=== PATIENT | male | born 1940 | race Caucasian/White ===

== ENCOUNTER 2021-02-18 08:47 | Inpatient (IN) ==
[2021-02-18] MEDS ORDERED: FUROSEMIDE 40 MG/4 ML VIAL IV STA (09:38)
[2021-02-18 09:43] LABS: Basophils # 0.1 10*3/uL (0.0-0.2); Basophils % 0.5 % (0.0-0.8); Eosinophils # 0.3 10*3/uL (0.0-0.87); Eosinophils % 2.4 % (0.00-10.9); Hematocrit 37.2 VOL% (42.0-52.0); Hemoglobin 11.9 GM/DL (14.0-18.0); Immature Granulocytes % 0.7 %; Immature Granulocytes Absolute 0.09 #; Lymphocytes # 1.4 10*3/uL (1.4-4.0); Lymphocytes % 11.4 % (21.2-54.2); Mean Corpuscular Volume 91.9 FL (87-102); Mean Platelet Volume 10.8 FL (9.6-12.0); Monocytes % 4.4 % (1.7-12.7); Neutrophils % 80.6 % (38.7-73.9); Platelet Count 338 T/CUMM (130-400); Red Blood Count 4.05 MC/CUMM (3.8-5.5); Red Cell Distribution Width 13.8 % (9.3-17.3); White Blood Count 12.6 T/CUMM (4-12)
[2021-02-18 09:56] LABS: Albumin 3.5 G/DL (3.4-5.0); Bilirubin,Total 0.7 MG/DL (0.2-1.0); Calcium 9.2 MG/DL (8.5-10.1); Potassium 3.9 MMOL/L (3.5-5.1); Total Protein 6.7 G/DL (6.4-8.2)
[2021-02-18 10:10] LABS: INR 1.2; PT Patient Result 12.8 SECS (9.8-11.9); Partial Thromboplastin Time 29.9 SECS (23.9-33.8)
[2021-02-18] MEDS ORDERED: AZITHROMYCIN INJ 500 MG in SODIUM CHLORIDE 0.9% 250 ML IV STA (11:48)
[2021-02-18] MEDS ORDERED: cefTRIAXone 1,000 MG VIAL IM STA (11:48)
[2021-02-18] MEDS ORDERED: cefTRIAXone 1,000 MG in SODIUM CHLORIDE 0.9% 100 ML IV SCH (12:00)
[2021-02-18] MEDS: cefTRIAXone 1,000 MG in SODIUM CHLORIDE 0.9% 100 ML IV SCH (12:13)
[2021-02-18] MEDS ORDERED: DILTIAZEM 50 MG/10 ML VIAL IV STA (12:15)
[2021-02-18] MEDS ORDERED: METOPROLOL TARTRATE 25 MG TABLET PO STA (12:17)
[2021-02-18] MEDS ORDERED: ONDANSETRON 4 MG/2 ML VIAL IV PRN (12:19)
[2021-02-18] MEDS ORDERED: hydrALAZINE 20 MG/1 ML VIAL IV PRN (12:19)
[2021-02-18] MEDS ORDERED: GLUCAGON 1 MG VIAL IM PRN (12:19)
[2021-02-18] MEDS ORDERED: DOCUSATE SODIUM 100 MG CAPSULE PO PRN (12:19)
[2021-02-18] MEDS ORDERED: DEXTROSE 50% 25 GM/50 ML VIAL IV PRN (12:19)
[2021-02-18] MEDS: DILTIAZEM INJ 100 MG in SODIUM CHLORIDE 0.9% 100 ML IV SCH (12:43)
[2021-02-18 13:20] LABS: Thyroid Stimulating Hormone 2.31 uIU/ml (0.358-3.74)
[2021-02-18] MEDS: ENOXAPARIN 40 MG/0.4 ML SYRINGE SUBCUT SCH (13:32)
[2021-02-18] MEDS ORDERED: INSULIN LISPRO 100 UNIT/ML SUBCUT PRN (15:19)
[2021-02-18] MEDS: METOPROLOL TARTRATE 25 MG TABLET PO SCH (21:07)
[2021-02-18] MEDS: TAMSULOSIN 0.4 MG CAPSULE PO SCH (21:07)
[2021-02-19 05:36] LABS: Basophils # 0.1 10*3/uL (0.0-0.2); Basophils % 0.3 % (0.0-0.8); Eosinophils # 0.2 10*3/uL (0.0-0.87); Eosinophils % 1.4 % (0.00-10.9); Hematocrit 35.6 VOL% (42.0-52.0); Hemoglobin 11.6 GM/DL (14.0-18.0); Immature Granulocytes % 0.8 %; Immature Granulocytes Absolute 0.12 #; Lymphocytes # 1.4 10*3/uL (1.4-4.0); Lymphocytes % 9.1 % (21.2-54.2); Mean Corpuscular HGB Conc 32.6 GM/DL (32-36); Mean Corpuscular Volume 90.1 FL (87-102); Mean Platelet Volume 10.9 FL (9.6-12.0); Monocytes % 5.4 % (1.7-12.7); Platelet Count 338 T/CUMM (130-400); Red Blood Count 3.95 MC/CUMM (3.8-5.5); Red Cell Distribution Width 13.9 % (9.3-17.3); White Blood Count 15.3 T/CUMM (4-12)
[2021-02-19 06:31] LABS: Calcium 8.9 MG/DL (8.5-10.1); Osmolality,Calculated 269.2 MOS/KG (273-304); Potassium 3.5 MMOL/L (3.5-5.1)
[2021-02-19] MEDS: METOPROLOL TARTRATE 25 MG TABLET PO SCH (08:52)
[2021-02-19] MEDS: FUROSEMIDE 40 MG TABLET PO SCH (08:52)
[2021-02-19] MEDS: PANTOPRAZOLE 40 MG TABLET PO SCH (08:53)
[2021-02-19] MEDS: cefTRIAXone 1,000 MG in SODIUM CHLORIDE 0.9% 100 ML IV SCH (12:16)
[2021-02-19] MEDS: ENOXAPARIN 40 MG/0.4 ML SYRINGE SUBCUT SCH (12:17)
[2021-02-19] MEDS: AZITHROMYCIN INJ 500 MG in SODIUM CHLORIDE 0.9% 250 ML IV SCH (13:00)
[2021-02-19] MEDS: DILTIAZEM INJ 100 MG in SODIUM CHLORIDE 0.9% 100 ML IV SCH (14:26)
[2021-02-19] MEDS ORDERED: FUROSEMIDE 40 MG/4 ML VIAL IV ONE (14:33)
[2021-02-19] MEDS: DOCUSATE SODIUM 100 MG CAPSULE PO SCH (20:21)
[2021-02-19] MEDS: ACETAMINOPHEN 500 MG TABLET PO SCH (20:21)
[2021-02-19] MEDS: METOPROLOL TARTRATE 50 MG TABLET PO SCH (20:22)
[2021-02-19] MEDS: TAMSULOSIN 0.4 MG CAPSULE PO SCH (20:22)
[2021-02-19] MEDS ORDERED: ENOXAPARIN 80 MG/0.8 ML SYRINGE SUBCUT SCH (21:00)
[2021-02-19] MEDS ORDERED: SIMVASTATIN 20 MG TABLET PO SCH (21:00)
[2021-02-20 05:14] LABS: Basophils % 0.5 % (0.0-0.8); Eosinophils # 0.3 10*3/uL (0.0-0.87); Eosinophils % 3.7 % (0.00-10.9); Hematocrit 36.8 VOL% (42.0-52.0); Hemoglobin 11.6 GM/DL (14.0-18.0); Immature Granulocytes % 0.6 %; Immature Granulocytes Absolute 0.05 #; Lymphocytes # 1.6 10*3/uL (1.4-4.0); Lymphocytes % 18.9 % (21.2-54.2); Mean Corpuscular HGB Conc 31.5 GM/DL (32-36); Mean Corpuscular Volume 91.3 FL (87-102); Mean Platelet Volume 10.4 FL (9.6-12.0); Monocytes % 8.3 % (1.7-12.7); Platelet Count 298 T/CUMM (130-400); Red Blood Count 4.03 MC/CUMM (3.8-5.5); Red Cell Distribution Width 13.8 % (9.3-17.3); White Blood Count 8.5 T/CUMM (4-12)
[2021-02-20 05:30] LABS: Calcium 8.9 MG/DL (8.5-10.1); Osmolality,Calculated 281.3 MOS/KG (273-304); Potassium 3.3 MMOL/L (3.5-5.1)
[2021-02-20 05:35] LABS: Risk Ratio 4.77; VLDL CHOLESTEROL 26.8 MG/DL
[2021-02-20] MEDS: ACETAMINOPHEN 500 MG TABLET PO SCH (08:43)
[2021-02-20] MEDS: FUROSEMIDE 40 MG TABLET PO SCH (08:43)
[2021-02-20] MEDS: DOCUSATE SODIUM 100 MG CAPSULE PO SCH (08:43)
[2021-02-20] MEDS: METOPROLOL TARTRATE 50 MG TABLET PO SCH (08:43)
[2021-02-20] MEDS: PANTOPRAZOLE 40 MG TABLET PO SCH (08:43)
[2021-02-20] MEDS ORDERED: MULTIVITAMIN (BEROCCA) TABLET PO SCH (09:00)
[2021-02-20] MEDS ORDERED: CHOLECALCIFEROL 1,000 UNIT TABLET PO SCH (09:00)
[2021-02-20] MEDS ORDERED: ASPIRIN EC 81 MG TABLET PO SCH (09:00)
[2021-02-20] MEDS ORDERED: POTASSIUM CHLORIDE 20 MEQ TABLET PO PRN (09:06)
[2021-02-20] MEDS ORDERED: POTASSIUM CHLORIDE 20 MEQ TABLET PO ONE (10:13)
[2021-02-20] MEDS: cefTRIAXone 1,000 MG in SODIUM CHLORIDE 0.9% 100 ML IV SCH (11:50)
[2021-02-20] MEDS: AZITHROMYCIN INJ 500 MG in SODIUM CHLORIDE 0.9% 250 ML IV SCH (11:50)
[2021-02-20 11:51] VITALS: BP 120/79
[2021-02-20] MEDS ORDERED: ENOXAPARIN 40 MG/0.4 ML SYRINGE SUBCUT SCH (12:01)
[2021-02-20] MEDS ORDERED: SIMVASTATIN 40 MG TABLET PO SCH (21:00)
== END 2021-02-20 12:22 | disposition home health service (06) | DRG 291 ==
LOC: N.ED 08:47 → N.EDINP 12:19 → N.TELES 16:12
PROVIDERS: ADMIT Internal Medicine; ATTEND Internal Medicine